=== PATIENT | male | born 1985 | race Caucasian/White ===

== ENCOUNTER 2023-03-17 16:39 | Emergency (ER) | payer BC, SELFPAY ==
--- NOTE | 2023-03-17 16:56 | ED.WOUNDLAC ---
HPI - Wound/Laceration General Chief Complaint: Wound/Laceration Stated Complaint: finger laceration (rt hand) Time Seen by Provider: 03/17/23 16:54 Source: patient Mode of arrival: ambulatory Limitations: no limitations History of Present Illness HPI narrative: Patient is a 37-year-old male that presents with laceration to right index finger. Patient was crushing oil filters at work when 1 got jammed. When he was pulling it out his finger got caught. Reports since it happened 3 hours ago. Denies any numbness or tingling to finger. Related Data Allergies Allergy/AdvReac Type Severity Reaction Status Date / Time amoxicillin Allergy Unknown Unknown Verified 03/17/23 17:04 Review of Systems Review of Systems: All systems reviewed & are unremarkable except as noted in HPI and below Constitutional: Constitutional: Denies body ache(s), Denies chills, Denies fatigue, Denies fever(s), Denies headache(s), Denies malaise and Denies weakness Eyes: Eyes: Denies blurry vision, Denies irritation and Denies loss of vision ENT: Denies otalgia, Denies headache(s), Denies nasal discharge, Denies sinus pain and Denies sore throat Cardiovascular: Cardiovascular: Denies chest pain, Denies irregular heart rhythm and Denies dyspnea Respiratory: Respiratory: Denies dyspnea Gastrointestinal: Gastrointestinal: Denies abdominal pain, Denies melena, Denies hematochezia, Denies diarrhea, Denies nausea and Denies vomiting Musculoskeletal: Musculoskeletal: Denies back pain, Denies myalgias and Denies arthralgias Integumentary/Breasts: Skin/Breast: Denies pruritus, Denies rash and Reports wounds Neurologic: Denies headache(s), Denies loss of vision and Denies weakness Psychiatric: Psychiatric: Reports no additional psychiatric complaints Endocrine: Endocrine: Denies fatigue PMFSH Family History Family History Grandparent Diabetes mellitus Father Diabetes mellitus Other Family history of malignant melanoma Social History Social History Smoking status: Heavy tobacco smoker Alcohol intake: current Comments At time of signature, agree with nursing past medical, surgical, social and family history. There is no relevant family history pertinent to the presenting complaint. Exam Const: General: cooperative, healthy appearing, comfortable, no acute distress and well nourished Nutritional Appearance: well nourished Orientation/consciousness: patient oriented x3 Limitations: no limitations HENMT: Head: normal to inspection, normocephalic and atraumatic Ears: hearing grossly normal bilaterally and external ears normal Face/Nose/Sinus: Normal external nose present, normal facial exam and face symmetric Face and sinus: normal facial exam and face symmetric Mouth: Yes lip normal Eyes: General: appearance normal, both eyes and all related structures Alignment and Position: alignment normal and position normal Periorbital: periorbital findings normal Eyelids: eyelids normal Pupils: Equal, round and reactive pupils present EOM: EOMs intact bilaterally Neck: Neck: normal visual inspection, full ROM and supple Chest: Chest palpation & inspection: normal inspection of the chest Resp: Effort & Inspection: normal respiratory effort and able to speak in complete sentences Auscultation: clear to auscultation bilaterally Cardio: Rate: regular rate Rhythm: regular rhythm Heart sounds: S1 normal heart sound present and S2 normal heart sound present GI: Inspection: normal to inspection Skin: General skin exam: normal color and no rashes or lesions noted Neuro: General: patient oriented x3 and moves all extremities Cranial nerves: Yes Equal, round and reactive pupils present Speech: normal speech Gait exam (Neuro): Normal gait present Extrem: General: normal to inspection, full ROM and no edema Left upper extremity: hand lace
[2023-03-17 17:04] VITALS: BP 144/78; PULSE 100; RESP 18; TEMP 36.8; O2SAT 98
[2023-03-17 17:05] VITALS: BP 144/78; PULSE 100; RESP 18; TEMP 36.8; O2SAT 98
[2023-03-17] MEDS: LIDOCAINE HCL 1% LOCAL INJ 2 ML AMPUL INFILTRATE (17:20)
[2023-03-17] MEDS: TETANUS,DIPHTHERIA,AC PERTUSSIS ADULT (0.5 ML) BOOSTRIX IM (17:20)
== END 2023-03-17 18:18 | disposition home or self-care (01) ==
PROVIDERS: Emergency Provider Nurse Practitioner Family; PCP Family Medicine
DX: S61.210A Laceration without foreign body of right index finger without damage to nail, initial encounter (principal); X58.XXXA Exposure to other specified factors, initial encounter; Y99.0 Civilian activity done for income or pay; Z23 Encounter for immunization; F17.200 Nicotine dependence, unspecified, uncomplicated
CPT/HCPCS: 12032; 90471; 90715; 99213; G0463

== ENCOUNTER 2023-03-26 08:55 | Emergency (ER) | payer BC, SELFPAY ==
[2023-03-26 09:20] VITALS: BP 121/83; PULSE 67; RESP 18; TEMP 36.5; O2SAT 100
--- NOTE | 2023-03-26 09:39 | ED.SKABFB ---
HPI - Skin/Abscess/Foreign Bdy General Chief complaint: Skin/Abscess/Foreign Body Stated complaint: suture removal Source: patient Mode of arrival: ambulatory Limitations: no limitations History of Present Illness HPI narrative: 37-year-old male presented for suture removal of the right index finger. Injury occurred on 03/17/2023. Six sutures were placed at that time. Patient was prescribed mupirocin ointment and reports compliance. Denies pain. He endorses mild swelling and decreased range of motion to the last knuckle of that finger (DIP). Related Data Allergies Allergy/AdvReac Type Severity Reaction Status Date / Time amoxicillin AdvReac Mild Hives Verified 03/26/23 09:13 Review of Systems Review of Systems: CONSTITUTIONAL: Denies body aches, fever, chills, or sweats. EYES: Denies visual changes, redness, or discharge. ENT: Denies rhinorrhea, congestion CARDIOVASCULAR: Denies chest pain, palpitations, or edema. RESPIRATORY: Denies cough or dyspnea. GASTROINTESTINAL: Denies abdominal pain, nausea, vomiting, or diarrhea. SKIN: 6 sutures to right index finger MUSCULOSKELETAL: Denies back pain, joint pain, or myalgia. NEUROLOGIC: Denies headache, numbness, tingling, or weakness. [facility] Family History Family History Grandparent Diabetes mellitus Father Diabetes mellitus Other Family history of malignant melanoma Social History Social History Smoking status: Heavy tobacco smoker Alcohol intake: current Comments At time of signature, I have reviewed and agree with nursing past medical, surgical, social and family history unless otherwise noted. Please see nursing chart for further information. There is no relevant family history pertinent to the presenting complaint Exam Narrative: GENERAL: Well-appearing CHEST: Clear to auscultation. HEART: Regular rate and rhythm. SKIN: Warm, dry. Right 2nd digit distal phalanx laceration with [address], mild swelling extending to the middle phalanx with limited ROM at DIP, minimal erythema or tenderness. Small amount yellow drainage. NEURO: Alert and oriented x3. Course Course Emergency Course: Patient is aware of diagnosis, understands and agrees to treatment plan. Anticipatory guidance given. Patient agrees to follow-up as directed and is aware of reasons to seek care at the emergency department. Portions of this record may have been created with voice recognition software Level of Care: Express Care Visit Vital Signs Vital signs: Vital Signs Temperature 97.7 F 03/26/23 09:20 Pulse Rate 67 03/26/23 09:20 Respiratory Rate 18 03/26/23 09:20 Blood Pressure 121/83 03/26/23 09:20 Pulse Oximetry 100 03/26/23 09:20 Oxygen Delivery Room Air 03/26/23 09:20 Temperature 97.7 F 03/26/23 09:20 Pulse Rate 67 03/26/23 09:20 Respiratory Rate 18 03/26/23 09:20 Blood Pressure 121/83 03/26/23 09:20 Pulse Oximetry 100 03/26/23 09:20 Oxygen Delivery Room Air 03/26/23 09:20 Reviewed Procedures Other Procedure Procedure 1: Other Procedure: 6 sutures removed from the right index finger distal phalanx, steri strips applied due to swelling and mild infection MDM - Skin/Abscess/Foreign Bdy MDM Narrative Medical decision making narrative: Six sutures removed from the right 2nd digit distal phalanx, discussed physical exam findings. mild swelling extending to the middle phalanx with limited ROM at DIP, minimal erythema or tenderness. Steri strips reinforced the healing lac. Rx abx. Provided with Dr Ramirez's contact info. Advised supportive measures and signs/symptoms to go to the ER. Pt is appropriate for outpt treatment and f/u. Differential Diagnosis Differential diagnosis: Likely other (abscess, cellulitis, felon, suture removal) Discharge Plan Discharge Clinical Impression: E
== END 2023-03-26 10:10 | disposition home or self-care (01) ==
PROVIDERS: Emergency Provider Nurse Practitioner Family; PCP Family Medicine
DX: S61.210D Laceration without foreign body of right index finger without damage to nail, subsequent encounter (principal); X58.XXXD Exposure to other specified factors, subsequent encounter; F17.290 Nicotine dependence, other tobacco product, uncomplicated
CPT/HCPCS: 99213; G0463

== ENCOUNTER 2024-02-09 10:57 | Emergency (ER) | payer BC, SELFPAY ==
[2024-02-09 12:07] VITALS: BP 136/90; PULSE 80; RESP 18; TEMP 37; O2SAT 100
[2024-02-09 12:27] LABS: EDCOVIDSCREEN Negative (Negative); EDINFLUASCREEN Negative (Negative); EDINFLUBSCREEN Negative (Negative); EDSTREPNEGPOS1 Negative (Negative)
[2024-02-09] MEDS: dexAMETHasone SOD PHOS INJ 10 MG/ML 1 ML VIAL BY MOUTH (12:55)
--- NOTE | 2024-02-09 12:55 | ED_ITS ---
HPI - General Adult General Chief complaint: Upper Respiratory Infection Stated complaint: flu like symptoms Source: patient Mode of arrival: ambulatory Limitations: no limitations History of Present Illness HPI narrative: Patient presents for evaluation of sick symptoms for last 3 days. Symptoms include chills, generalized body aches, and sore throat. No recent sick contacts to his knowledge. He has been taking Theraflu for his symptoms. no nausea, vomiting, diarrhea. He smokes half a pack per day. He indicates in the past he had conversations with the healthcare provider about a potential tonsillectomy, although he has not had that performed. Related Data Allergies Allergy/AdvReac Type Severity Reaction Status Date / Time amoxicillin AdvReac Mild Hives Verified 02/09/24 12:29 Review of Systems Review of Systems: CONSTITUTIONAL: reports chills. Denies fever. EYES: Denies visual changes, redness, or discharge. ENT: Reports sore throat. Denies rhinorrhea, congestion, or otalgia. CARDIOVASCULAR: Denies chest pain, palpitations, or edema. RESPIRATORY: Denies cough and SOB. GASTROINTESTINAL: Denies abdominal pain, nausea, vomiting, or diarrhea. GENITOURINARY: Denies dysuria or hematuria. SKIN: Denies rash or itching. MUSCULOSKELETAL: Reports generalized body aches NEUROLOGIC: Denies headache, numbness, dizziness, or weakness. PSYCHIATRIC: Denies anxiety or depression. PMFSH Past Medical History Medical History No pertinent past medical history Surgical History Surgical History No pertinent past surgical history Family History Family History Grandparent Diabetes mellitus Father Diabetes mellitus Other Family history of malignant melanoma Social History Social History Smoking packs per day: 0.5 Smoking cigarettes per day: 10.0 Smoking status: Current every day smoker Tobacco type: cigarettes Alcohol intake: current Gender identity (if verbalized by the patient): Male Spiritual care concerns: No Exam Narrative: GENERAL: Well-appearing, well-nourished, and in no acute distress. HEAD: Normocephalic, atraumatic. EYES: PERRLA and EOMI. ENT: Nares clear, no rhinorrhea or epistaxis. Mucous membranes moist. There is bilateral tonsillar enlargement with right being slightly larger than the left. There is white/ green exudate on bilateral tonsils. Uvula is midline. Bilateral TMs pearly stewart nonbulging NECK: Supple. No adenopathy or masses. No carotid bruits or JVD CHEST: Clear to auscultation. No respiratory distress. No wheezes rales or rhonchi HEART: Regular rate and rhythm. No murmur heard. Normal peripheral pulses. ABDOMEN: Soft, nontender, nondistended, normal active bowel sounds. EXTREMITIES: Normal range of motion. No edema. SKIN: Warm, dry, no rash. NEURO: No focal deficits. Alert and oriented x3. PSYCH: Normal mood and affect. Course Course Emergency Course: This is a 38-year-old male who presented for evaluation of sick symptoms. COVID, flu, strep were all negative. There is a very small difference in enlargement of the right tonsil compared to the left. I did offer to transfer him to the ER to rule out peritonsillar abscess. He declined. Think this is reasonable as I have low clinical suspicion for this. Uvula is midline on exam. Will treat with amoxicillin. Send throat culture. Follow-up with primary provider. [id number] ibuprofen and Tylenol for symptom management. He was given Decadron while here. In the event that he has worsening symptoms, he should go to the emergency department. Patient in agreement with plan of care. Level of Care: Express Care Visit Vital Signs Vital signs: Vital Signs Temperature 37.0 C 02/09/24 12:07 Pulse Rate 80 02/09/24 12:07 Respiratory Rate 18 02/09/24 12:07 Blood Pressure 136/90 02/09/24 12:07 Pulse Oximetry 100 02/09/24 12:07 Oxygen Delivery Room Air 02/09/24 12:07 Temperature 37.0 C 02/09/24 12:07 Pulse Rate 80 02/09/24 12:07 Respiratory Rate 18 02/09/24 12:07 Blood Pressure 136/90 02/09/24 12:07 Pulse Oximetry 100 02/09/24 12:07 Oxygen Delivery Room Air 02/09/24 12:07 Medical Decision Making Vital Signs Vital Signs: Vital Signs Temperature 37.0 C 02/09/24 12:07 Pulse Rate 80 02/09/24 12:07 Respiratory Rate 18 02/09/24 12:07 Blood Pressure 136/90 02/09/24 12:07 Pulse Oximetry 100 02/09/24 12:07 Oxygen Delivery Room Air 02/09/24 12:07 Temperature 37.0 C 02/09/24 12:07 Pulse Rate 80 02/09/24 12:07 Respiratory Rate 18 02/09/24 12:07 Blood Pressure 136/90 02/09/24 12:07 Pulse Oximetry 100 02/09/24 12:07 Oxygen Delivery Room Air 02/09/24 12:07 Lab Data Labs: Lab Results 02/09/24 Range/Units 12:23 POC Influenza A Ag Negative (Negative) POC Influenza B Ag Negative (Negative) POC SARS CoV-2 Ag Negative (Negative) POC Grp A Strep Screen Negative (Negative) Discharge Plan Discharge Clinical Impression: Pharyngitis Patient Disposition: Home, Self-Care Condition: Stable Instructions: Antibiotic Form, Pharyngitis (ED) Additional Instructions: YOU MAY TAKE IBUPROFEN 800MG THREE TIMES DAILY FOR PAIN YOU CAN ALTERNATE THIS WITH TYLENOL 650MG EVERY SIX HOURS Patient Language: Tongan Prescriptions: New amoxicillin 500 mg tablet 500 mg PO Q12H Qty: 20 0RF Cepacol Sore Throat (yovani-men) 15-2.6 mg lozenge 1 eriberto mucous membrane Q2-4H PRN (Reason: sore throat) Qty: 16 1RF Follow-up/Referrals: Ra Galvin MD [Primary Care Provider] - Stand Alone Forms: Work/School Release IP Time of Disposition: 12:51
--- OUTSIDE RECORDS SUMMARY | 2024-02-14 01:43 | XMS_ITS | Referral Summary ---
Author Organization [facility] Address [address] [place] [address] Care Team Providers Care Landscape Account Manager Name Role Phone Ra Galvin MD Primary Care Provider [phone] Source Comments [facility],non-owned Affiliates and Associated Physician Practices is amultiple site organization consisting of ambulatory clinics and hospital sitesin [place], [place], [place] and [place]. This disclosure is being madepursuant to the Care Everywhere program and may not contain all information available regarding this patient. Last updated 17.[facility] Allergies No known active allergies Medications Be aware that medications may not be up to date on this document. Always verify current medications with the patient. No known medications Social History Tobacco Use Types Packs/Day Years Used Date Smoking Tobacco: Some Days Sex and Gender Information Value Date Recorded Sex Assigned at Not on file Gender Identity Not on file Sexual Orientation Not on file Last Filed Vital Signs Vital Sign Reading Time Taken Comments Blood Pressure 142/90 05/10/2016 2:09 PM CDT Pulse 78 05/10/2016 2:09 PM CDT Temperature 36.8 ??C (98.2 ??F) 05/10/2016 2:09 PM CD T Respiratory Rate 16 05/10/2016 2:09 PM CDT Oxygen Saturation 97% 05/10/2016 2:09 PM CDT Inhaled Oxygen Concentration - - Weight 70.3 kg (155 lb) 05/10/2016 2:09 PM CDT Height 172.7 cm (5' 8 ) 05/10/2016 2:09 PM CDT Body Mass Index 23.57 05/10/2016 2:09 PM CDT Plan of Treatment Not on file Care Teams Landscape Account Manager Relationship Specialty Start Date End Date Ra Galvin MD [address] [place], [place] [id number] PCP - General Family Medicine 05/10/16
--- OUTSIDE RECORDS SUMMARY | 2024-02-14 01:43 | XMS_ITS | Patient Health Summary ---
Author Organization [facility] Address [address] [place] [address] Care Team Providers Care Square Shear Operator Name Role Phone Ra Galvin MD Primary Care Provider [phone] Note from [facility],non-owned Affiliates and Associated Physician Practices is amultiple site organization consisting of ambulatory clinics and hospital sitesin [place], [place], [place] and [place]. This disclosure is being madepursuant to the Care Everywhere program and may not contain all information available regarding this patient. Last updated 17.[facility] Allergies No known active allergies Medications Be [...] Mass Index 23.57 05/10/2016 2:09 PM CDT Procedures * STREP A SCREEN - POINT OF CARE (AMB) STL(Performed 05/10/2016) Performed for Strep throat Results * (ABNORMAL) STREP A SCREEN (05/10/2016) Strep A Rapid POCT Positive(A) Negative Strep A Internal Control Present Lot # [id number] Expiration Date [id number] Throat ENTIRE THROAT (SURFACE REGION OF NECK) / Unknown 05/10/2016 Tiarra Bullock CASHIER PAYMENTS RECEIVED-EQUIP MAINT ENG LAB - POINT OF CARE ORDERABLES Care Teams Square Shear Operator Relationship Specialty Start Date End Date Ra Galvin MD [address] [place] [address] PCP - General Family Medicine 05/10/16
--- OUTSIDE RECORDS SUMMARY | 2024-02-14 01:43 | XMS_ITS | Clinical Summary ---
Author Organization [facility] [employer] Address [address] [address] Care Team Providers Care Supervisor Briar [employer] Name Role Phone Ra Galvin MD Primary Care Provider [phone] Source Comments [facility] [employer] [facility],non-owned Affiliates and Associated Physician Practices is amultiple site organization consisting of ambulatory clinics and hospital sitesin [place], [place], [place] and [place]. This disclosure is being madepursuant to the Care Everywhere program and may not contain all information available regarding this patient. Last updated 17.[facility] [employer] [facility] Allergies No known active allergies Medications Be [...] 05/10/2016 2:09 PM CDT Plan of Treatment Health Maintenance Due Date Last Done Comments PNEUMOCOCCAL VACCINE (1 of 2 - PCV) 1992 HIV SCREENING 2001 HEPATITIS C SCREENING 07/10/2004 DTAP/TDAP/TD VACCINES (1 - Tdap) 2005 HEPATITIS B VACCINE (1 of 3 - 19+ 3-dose series) 2005 DEPRESSION SCREENING 02/25/2023 COVID-19 VACCINE (1 - 2023-2 5 season) 2023 INFLUENZA VACCINE (#1) 2023 ZOSTER VACCINE (1 of 2) 2036 HIB VACCINE Aged Out No longer eligi ble based on patient's age to complete this topic HPV VACCINE Aged Out No longer eligi ble based on patient's age to complete this topic MENINGOCOCCAL VACCINE Aged Out No ulices williams eligible based on patient's age to complete this topic Care Teams Supervisor Briar [employer] Relationship Specialty Start Date End Date Ra Galvin MD [address] [place] [address] PCP - General Family Medicine 05/10/16
--- OUTSIDE RECORDS SUMMARY | 2024-02-14 01:43 | XMS_ITS | Encounter Summary ---
Author Organization [facility] Address [address] [place] [address] Care Team Providers Care Printed Circuit Board Drafter Name Role Phone Ra Galvin MD Primary Care Provider [phone] Reason for Visit * Reason Onset Date Comments Follow-up 05/12/2016 Encounter Details Date Type Department Care Team (Late st Contact Info) Description 05/12/2016 Telephone [facility] [employer] [facility] [address] [id number] Sonia Morelos Follow-up Social History Tobacco Use Types Packs/Day Years Used Date Smoking Tobacco: Some Days Sex and Gender Information Value Date Recorded Sex Assigned at Not on file Gender Identity Not on file Sexual Orientation Not on file documented as of this encounter Plan of Treatment Not on file documented as of this encounter Visit Diagnoses Not on filedocumented in this encounter Care Teams Printed Circuit Board Drafter Relationship Specialty Start Date End Date Ra Galvin MD [address] [place] [address] PCP - General Family Medicine 05/10/16 documented as of this encounter
--- OUTSIDE RECORDS SUMMARY | 2024-02-14 01:43 | XMS_ITS | Encounter Summary ---
Author Organization [facility] Address [address] [place] [address] Care Team Providers Care Manager Plumbing Name Role Phone Ra Galvin MD Primary Care Provider [phone] Reason for Visit * Reason Comments Sore Throat Encounter Details Date Type Department Care Team (Late st Contact Info) Description 05/10/2016 2:00 PM CDT Office Visit [facility] [address] [address] Provider, [facility] [place] Strep throat (Primary Dx) Social History Tobacco Use Types Packs/Day Years Used Date Smoking Tobacco: Some Days Sex and Gender Information Value Date Recorded Sex Assigned at Not on file Gender Identity Not on file Sexual Orientation Not on file documented as of this encounter Last Filed Vital Signs Vital Sign Reading [...] Mass Index 23.57 05/10/2016 2:09 PM CDT documented in this encounter Patient Instructions * Patient Instructions* Tiarra Bullock APRN-CNP - 05/10/2016 2:23 PM CDT You will be considered contagious until you have taken the antibiotic for 24 hours. Be sure to discard your toothbrush in 3 days and use a new one. Warm salt water gargles several times daily to help with your sore throat. Sore throat lozenges and/or sprays per package directions for sore throat. May take tylenol or ibuprofen per package directions for pain or fever. Be sure to take all the antibiotic Increase water intake and rest Follow up if symptom do not improve in 3- 4 days or resolve as expected, sooner if any questions orconcerns Strep Throat, Master Scheduler GENERAL INFORMATION: Strep throat is a throat infection caused by bacteria. It is easily spread from person to person. Common symptoms include the following: ?? Sore, red, and swollen throat ?? Fever and headache ?? Upset stomach, abdominal pain, or vomiting ?? White or yellow patches or blisters in the back of your throat ?? Tender, swollen lumps on the sides of your neck or jaw ?? Throat pain when you swallow Seek immediate care for the following symptoms: ?? Throat pain that makes it too painful to drink fluids ?? Drooling because you cannot swallow your spit ?? Not able to open your mouth all the way or your voice is muffled ?? Trouble breathing because your throat is swollen ?? New symptoms like a bad headache, stiff neck, chest pain, or vomiting ?? Blood in your urine and swollen face, feet, or hands Treatment for strep throat: You will need antibiotic medicine to treat your strep throat. Take yourantibiotics until they are gone, even if you feel better. Do this unless your caregiver says it is okay to stop your antibiotics. You may return to work or school 24 hours after you start antibiotics. Manage strep throat: ?? Do not smoke. If you smoke, it is never too late to quit. Smoking may make your symptoms worse. Ask for information if you need help quitting. ?? Drink juice, milk shakes, or soup if your throat is too sore to eat solid food. Drinking liquidscan also help prevent dehydration. ?? Gargle with salt water. Mix ?? teaspoon salt in a glass of warm water and gargle. This may help reduce swelling in your throat. ?? Use lozenges, ice, soft foods, or popsicles to soothe your throat. Prevent the spread of strep throat: ?? Do not share food or drinks ?? Wash your hands often ?? Replace your toothbrush after you have taken antibiotics for 24 hours Follow up with your healthcare provider as directed: Write down your questions so you remember to ask them during your visits. CARE AGREEMENT: You have the right to help plan your care. Learn about your health condition and how it may be treated. Discuss treatment options with your caregivers to decide what care you want to receive. You always have the right to refuse treatment. The above information is an instructor psychiatric aide only. It is not intended as medical advice for individual conditions or treatments. Talk to your doctor, nurse or pharmacist before following any medical regimen to see if it is safe and effective for you. ?? 2014 [employer]. Information is for End User's use only and may not be sold, redistributed or otherwise used for commercial purposes. All illustrations and images included in CareNotes?? are the copyrighted property of [employer]. or [employer]. documented in this encounter Progress Notes * Tiarra Bullock APRN-CNP - 05/10/2016 2:16 PM CDT [facility] Chief Complaint Patient presents with ??? Sore Throat SUBJECTIVE: General The history is provided by the patient. This is a new problem. The current episode started more than 2 days ago. The problem occurs constantly. Pertinent negatives include no headaches. Treatments tried: salt water gargle, ibuprofen. The treatment provided mild relief. sore throat for 3 days Past Medical History Diagnosis Date ??? NEGATIVE PAST MEDICAL HISTORY - SEE PROBLEM LIST No current outpatient prescriptions on file prior to visit. No current facility-administered medications on file prior to visit. Past Surgical History Procedure Laterality Date ??? Negative surgical history History Social History ??? Marital status: Significant Other Spouse name: N/A ??? Number of children: N/A ??? Years of education: N/A Occupational History ??? Not on file. Social History Main Topics ??? Smoking status: Current Some Day Smoker ??? Smokeless tobacco: Not on file ??? Alcohol use: Not on file ??? Drug use: Not on file ??? Sexual activity: Not on file Other Topics Concern ??? Not on file Social History Narrative ??? No narrative on file No family history on file. Current Outpatient Prescriptions Medication Sig Dispense Refill ??? amoxicillin (AMOXIL) 875 MG tablet Take 1 Tab by mouth 2 times daily for 10 days 20 Tab 0 No current facility-administered medications for this visit. No Known Allergies REVIEW OF SYSTEMS: Review of Systems Constitutional: Negative for fever. HENT: Positive for sore throat. Negative for congestion and ear pain. Swollen glands Respiratory: Negative for cough. Gastrointestinal: Negative for nausea and vomiting. Skin: Negative for rash. Neurological: Negative for headaches. OBJECTIVE: General appearance: alert, well appearing, and in no distress. BP 142/90 (BP SITE: LEFT ARM, BP POSITION: SITTING, BP CUFF SIZE: Adult) Pulse 78 Temp 98.2 ??F (Oral) Resp 16 Ht 1.727 m (5' 8 ) Wt 70.3 kg (155 lb) SpO2 97% BMI 23.57 kg/m2 Physical Exam Constitutional: well-developed, well-nourished, and in no distress. HENT: ?? Head: Normocephalic. Right Ear: Tympanic membrane and ear canal normal. Left Ear: Tympanic membrane and ear canal normal. ?? Nose: Mucosal edema and rhinorrhea present. Right sinus exhibits no maxillary sinus tenderness and no frontal sinus tenderness. Left sinus exhibits no maxillary sinus tenderness and no frontal sinus tenderness. ?? Mouth/Throat: Uvula is midline and mucous membranes are normal. Oropharyngeal exudate, posterior oropharyngeal edema and posterior oropharyngeal erythema present. Tonsils are 2+, exudative and red, able to move air without difficulty Eyes: Conjunctivae are normal. Neck: Normal range of motion. Cardiovascular: Normal rate and regular rhythm. Pulmonary/Chest: Effort normal and breath sounds normal. No cough noted. Lymphadenopathy: Right cervical: superficial cervical adenopathy and tenderness present. No posterior cervical adenopathy present. Left cervical: superficial cervical adenopathy and tenderness present. No posterior cervical adenopathy present. Neurological: alert. Skin: Skin is warm and dry. No rashes noted. Psychiatric: Affect normal. Vitals reviewed. ASSESSMENT: Office Visit on 05/10/16 STREP A SCREEN Result Value Ref Range Strep A Rapid Positive (Abnormal) Negative Strep A INTERNAL CONTROL Present Lot Number [id number] Expiration Date Encounter Diagnosis Name Primary? Strep throat Yes PLAN: Orders Placed This Encounter ??? STREP A SCREEN ??? amoxicillin (AMOXIL) 875 MG tablet Sig: Take 1 Tab by mouth 2 times daily for 10 days Dispense: 20 Tab Refill: 0 You will be considered contagious until you have taken the antibiotic for 24 hours. Be sure to discard your toothbrush in 3 days and use a new one. Warm salt water gargles several times daily to help with your sore throat. Sore throat lozenges and/or sprays per package directions for sore throat. May take tylenol or ibuprofen per package directions for pain or fever. Be sure to take all the antibiotic Increase water intake and rest Follow up if symptom do not improve in 3- 4 days or resolve as expected, sooner if any questions orconcerns documented in this encounter Plan of Treatment Not on file documented as of this encounter Procedures Procedure Name Priority Date/Time Associated Diagnosis Comments STREP A SCREEN - POINT OF CARE (AMB) STL Routine 05/10/2016 Strep throat documented in this encounter Results * (ABNORMAL) STREP A SCREEN (05/10/2016) Strep A Rapid POCT Positive(A) Negative Strep A Internal Control Present Lot # [id number] Expiration Date Throat ENTIRE THROAT (SURFACE REGION OF NECK) / Unknown 05/10/2016 [facility] - POINT OF CARE ORDERABLES documented in this encounter Visit Diagnoses Diagnosis Strep throat- Primary Streptococcal sore throat documented in this encounter Care Teams Manager Plumbing Relationship Specialty Start Date End Date Ra Galvin MD [address] [place] [address] PCP - General Family Medicine 05/10/16 documented as of this encounter
== END 2024-02-09 12:57 | disposition home or self-care (01) ==
PROVIDERS: Emergency Provider Nurse Practitioner; PCP Family Medicine
DX: J02.9 Acute pharyngitis, unspecified (principal); Z20.822 Contact with and (suspected) exposure to COVID-19; F17.210 Nicotine dependence, cigarettes, uncomplicated
CPT/HCPCS: 87081; 87426; 87804; 87880; 99213; G0463; J1100

== ENCOUNTER 2024-05-27 01:37 | Emergency (ER) | payer BC, SELFPAY ==
--- NOTE | ~2024-05-27 | CT_ITS ---
Noncontrast CT scan of the cervical spine Technique: Multiple contiguous axial [address] images of the cervical spine were obtained and rec onstructed in 2D sagittal and coronal planes on the acquisition scanner. Dose reduction technique was used on this scan by utilizing automated exposure control, adjustment of the mA and/or kV according to patient size. The dose-length product (DLP) was 851.37 mGy-cm. Clinical History: Pain Findings: No fractures or dislocations. Unremarkable visualized bony structures. The intervertebral disc spaces are preserved. No prevertebral soft tissue swelling. Impression: No fracture or subluxation of the cervical spine. Reviewed, dictated and finalized at location . Impression: No fracture or subluxation of the cervical spine.
--- NOTE | ~2024-05-27 | CT_ITS ---
Non-contrast Head CT History: Status post fall Technique: Axial non-contrast imaging of the brain was performed. Dose reduction technique was used on this scan by utilizing automated exposure control and iterative reconstruction technique. The dose -length product (DLP) was 756.67 mGy-cm. Findings: There is no evidence of intracranial hemorrhage, mass lesion, or acute infarct. Brain par enchyma appears normal. The ventricles and subarachnoid spaces are normal in size. The calvarium ap pears normal. There is bilateral ethmoid sinus disease and mild left maxillary sinus disease. The rem aining visualized paranasal sinuses and mastoid air cells are clear. Impression: No intracranial abnormality seen. Mild sinus disease, as above. Reviewed, dictated and finalized at location . Impression: No intracranial abnormality seen. Mild sinus disease, as above.
[2024-05-27 01:33] VITALS: BP 129/61; PULSE 96; RESP 16; TEMP 36.6; O2SAT 100
--- NOTE | 2024-05-27 01:42 | ED_ITS ---
HPI - Head Injury General Chief complaint: Head Injury Stated complaint: HEAD INJURY,+LOC Time Seen by Provider: 05/27/24 01:40 History of Present Illness HPI Narrative: 38-year-old otherwise healthy male presenting to the emergency department via EMS as he is currently intoxicated and has a head injury. Patient had a witnessed fall with resultant head trauma and syncope at a local bar. Patient has been at the bar for approximately 2 hours according to pay trans who provides collateral formation to EMS. Patient does admit to drinking and does smell of alcohol on his slurring his speech. He has evidence of head trauma with a left-sided parietal scalp laceration that is approximately 4 cm in length. No palpable skull defect, no active bleeding. Patient was unconscious for approximately 10-20 minutes according to EMS. He required sternal rubbing and woke up after noxious stimuli. Patient is currently combative but redirectable with verbal deescalation. He states he is not any pain denies any headache, nausea, vomiting, vision changes or neck pain. He is moving all extremities. No other evidence of trauma to his extremities, back, chest or abdomen. He was brought back to room 14. For evaluation. Related Data Allergies Allergy/AdvReac Type Severity Reaction Status Date / Time amoxicillin AdvReac Mild Hives Verified 02/09/24 12:29 Review of Systems 2 Review of Systems: As reviewed above, limited secondary to patient's intoxication and mental status at this time [facility] Past Medical History Medical History No pertinent past medical history Surgical History Surgical History No pertinent past surgical history Family History Family History Grandparent Diabetes mellitus Father Diabetes mellitus Other Family history of malignant melanoma Social History Social History Smoking packs per day: 0.5 Smoking cigarettes per day: 10.0 Smoking status: Current every day smoker Tobacco type: cigarettes Alcohol intake: current Gender identity (if verbalized by the patient): Male Spiritual care concerns: No Exam 2 Narrative: GENERAL: Belligerent but awake and able to answer questions. Redirectable. HEAD: Normocephalic, left-sided parietal scalp laceration with no overlying hematoma or active bleeding. Approximate 3 cm and somewhat linear EYES: [PERRLA and EOMI.] ENT: Nares clear, no rhinorrhea or epistaxis. Mucous membranes moist. NECK: Supple. CHEST: [Clear to auscultation. No respiratory distress.] HEART: [Regular rate and rhythm]. No murmur heard. [Normal peripheral pulses.] ABDOMEN: [Soft, nondistended], [nontender], [No rigidity or guarding] EXTREMITIES: Normal range of motion. [No edema.] SKIN: Warm, dry, no rash. NEURO: [No focal deficits]. Alert and oriented and able to answer questions. although belligerent and intoxicated he has no focal deficits and able to cross his legs and move his upper extremities. Gait assessment deferred PSYCH: Belligerent Course Vital Signs Vital signs: Vital Signs Temperature 36.6 C 05/27/24 01:33 Pulse Rate 96 05/27/24 01:33 Respiratory Rate 16 05/27/24 01:33 Blood Pressure 129/61 05/27/24 01:33 Pulse Oximetry 100 05/27/24 01:33 Oxygen Delivery Room Air 05/27/24 01:33 Temperature 36.7 C 05/27/24 06:24 Pulse Rate 79 05/27/24 06:24 Respiratory Rate 16 05/27/24 06:24 Blood Pressure 116/73 05/27/24 06:24 Pulse Oximetry 99 05/27/24 06:24 Oxygen Delivery Room Air 05/27/24 01:33 Procedures Laceration Laceration 1: Date: 05/27/24 Time: 02:53 Site: scalp Side (If applicable): left Size (cm): 3 Description: linear Depth: simple, single layer Local Anesthetic: lidocaine 1% (Let gel) Pre-repair: wound explored and irrigated ====== Skin Level ====== Skin layer closed with: edilma (6 edilma) ====== Subcutaneous Layer ====== ====== Muscle Layer ====== ====== Tendon Layer ====== Dressing: Gauze bandage MDM - Head Injury MDM Narrative Medical decision making narrative: 38-year-old male presenting after head trauma with loss of consciousness. No reported anticoagulation or blood thinner use. Does admit to drinking heavily throughout the evening prior to the event. Was unconscious for approximately 10-20 minutes per bystanders. Woke up to noxious stimuli. He does smell of alcohol, is belligerent and initially combative with staff, IM Haldol was ordered but he stated that he will be cooperative and this was not administered at this time. He does have evidence of head trauma with left-sided laceration. This will be repaired with edilma upon completion of workup. No active bleeding. No other evidence of trauma to his chest abdomen back or extremities. Tetanus will be updated here, CT scans of his head neck were ordered. Basic laboratory studies and alcohol level were ordered. Patient declined any analgesia at this time. Let gel applied to the wound. Patient did attempt to elope and was ambulating with a very unsteady gait out of the department. Security called and he did require chemical restraint including 5 mg of intramuscular Haldol and 2 mg of intramuscular Ativan with good effect. He was much more calm and cooperative at this time, alcohol level significant elevated 358. CT scans of the head and neck were obtained. Six edilma placed into his parietal scalp with good hemostasis and wound approximation. CT scans were independently reviewed and also interpreted by Radiology. No acute intracranial findings such as hemorrhage edema, mass effect. No fractures but there is a parietal scalp hematoma with laceration that was repaired. Cervical spine shows no fractures or subluxations. No appreciable stenosis. Patient re-evaluated and doing well he is resting comfortably at this time. Will attempt to reach out the family members who can common provide him a ride home otherwise he will have to be in the ER until sober and able to ambulate unassisted. Patient's brother came in and will be his sober ride home. Patient is hemodynamically stable, cooperative and appropriate for discharge at this time. Medical Records Attestation: I reviewed the patient's medical records. Lab Data Attestation: I reviewed the patient's lab results. 05/27/24 01:53 05/27/24 01:53 Labs: Lab Results 05/27/24 Range/Units 01:53 WBC 9.8 (4.5-10.0) K/mm3 RBC 4.93 (4.6-6.20) M/mm3 Hgb 14.7 (14.0-18.0) g/dL Hct 42.6 (42.0-52.0) % MCV 86.4 (80-100) fl MCH 29.8 (26-34) pg MCHC 34.5 (32-36) g/dl RDW 14.3 (11.5-14.5) % Plt Count 237 (150-375) k/mm3 MPV 8.9 (7.4-10.4) fl Immature Gran % (Auto) 0.2 (0-0.5) % Neut % (Auto) 41.5 L (45.5-73.1) % Lymph % (Auto) 50.5 H (18.3-44.2) % [place] % (Auto) 5.8 (2.6-8.5) % Eos % (Auto) 1.5 (0-4.4) % Baso % (Auto) 0.5 (0.2-1.2) % Lymph # (Auto) 4.96 H (0.9-3.2) K/mm3 [place] # (Auto) 0.6 (0.1-0.6) K/mm3 Eos # (Auto) 0.2 (0-0.3) K/mm3 Baso # (Auto) 0.1 (0.0-0.1) K/mm3 Abs Immat Gran (auto) 0.02 (0.00-0.031) K/mm3 Absolute Neuts (auto) 4.1 (1.3-6.7) K/mm3 Absolute Nucleated RBC 0.000 (0.0-0.012) K/mm3 Nucleated RBC % 0.0 (0.0-0.2) % PT 12.3 (11.1-14.7) Seconds INR 0.9 APTT 26.8 (22.3-36.8) Seconds Sodium 143 (137-145) mmol/L Potassium 4.0 (3.4-5.0) mmol/L Chloride 108 H (98-107) mmol/L Carbon Dioxide 17 L (22-30) mmol/L Anion Gap 18 H (4-12) mmol/L BUN 8 L (9-20) mg/dL Creatinine 0.62 L (0.7-1.3) mg/dL Estim Creat Clear Calc 144 ml/min Estimated GFR > 60 (59 - ) Glucose 96 (65-110) mg/dL Calcium 9.5 (8.4-10.2) mg/dL Total Bilirubin 0.4 (0.2-1.3) mg/dL AST 34 (17-59) U/L ALT 42 (6-50) U/L Alkaline Phosphatase 60 (38-126) U/L Total Protein 8.0 (6.3-8.2) g/dL Albumin 4.9 (3.5-5.1) g/dL Ethyl Alcohol 358 H* (<10) mg/dL Imaging Data Attestation: I personally reviewed and interpreted this imaging study as follows: My impression: No acute intracranial findings, normal cervical spine Discharge Plan Discharge Clinical Impression: Concussion with loss of consciousness <= 30 min, Closed head injury, Alcohol intoxication, Laceration of scalp Patient Disposition: Home, Self-Care Condition: Stable Instructions: Antibiotic Form, Laceration (ED), Concussion (ED), Staple Care (ED) Additional Instructions: You have 6 edilma in your left scalp from your large laceration. Follow-up with your primary care provider, urgent care, or emergency department in 10-14 days for wound check and staple removal. Refrain from significant alcohol use. Patient Language: Nigerien Prescriptions: No Action amoxicillin 500 mg tablet 500 mg PO Q12H Qty: 20 0RF Cepacol Sore Throat (yovani-men) 15-2.6 mg lozenge 1 eriberto mucous membrane Q2-4H PRN (Reason: sore throat) Qty: 16 1RF Follow-up/Referrals: Ra Galvin MD [Primary Care Provider] - Time of Disposition: 06:46
--- OUTSIDE RECORDS SUMMARY | 2024-05-27 01:45 | XMS_ITS | Clinical Summary ---
Author Organization [email or web address] Address [address] [place] [address] Care Team Providers Care Plow Shaker Name Role Phone Ra Galvin MD Primary Care Provider [phone] [email or web address],non-owned Affiliates and Associated Physician Practices is amultiple site organization consisting of ambulatory clinics and hospital sitesin [place], [place], [place] and [place]. This disclosure is being madepursuant to the Care Everywhere program and may not contain all information available regarding this patient. Last updated [email or web address] Allergies No known active allergies Medications Be [...] 78 05/10/2016 2:09 PM CDT Temperature 36.8 C (98.2 F) 05/10/2016 2:09 PM CDT Respiratory Rate 16 05/10/2016 2:09 PM CDT Oxygen Saturation 97% 05/10/2016 2:09 PM CDT Inhaled Oxygen Concentration - - Weight 70.3 kg (155 lb) 05/10/2016 2:09 PM CDT Height 172.7 cm (5' 8 ) 05/10/2016 2:09 PM CDT Body Mass Index 23.57 05/10/2016 2:09 PM CDT Plan of Treatment Health Maintenance Due Date Last Done Comments HIV SCREENING 2001 HEPATITIS C SCREENING 07/10/2004 DTAP/TDAP/TD VACCINES (1 - Tdap) 2005 HEPATITIS B VACCINE (1 of 3 - 19+ 3-dose series) 2005 COVID-19 VACCINE (1 - 2023-2 5 season) 2023 INFLUENZA VACCINE (#1) 2023 DEPRESSION SCREENING 02/26/2024 ZOSTER VACCINE (1 of 2) 2036 HIB VACCINE Aged Out No longer eligi ble based on patient's age to complete this topic HPV VACCINE Aged Out No longer eligi ble based on patient's age to complete this topic MENINGOCOCCAL (Group B) VACC INE SHARED DECISION-MAKING Aged Out No longer eligibl e based on patient's age to complete this topic MENINGOCOCCAL GROUPS A/C/Y/W VACCINE Aged Out No longer eligible b ased on patient's age to complete this topic PNEUMOCOCCAL VACCINE Aged Out No long er eligible based on patient's age to complete this topic Care Teams Plow Shaker Relationship Specialty Start Date End Date Ra Galvin MD [address] [place] [address] PCP - General Family Medicine 05/10/16
[2024-05-27] MEDS: TETANUS,DIPHTHERIA,AC PERTUSSIS ADULT (0.5 ML) BOOSTRIX IM (01:53)
[2024-05-27] MEDS: LIDOCAINE, EPINEPHRINE, TETRACAINE VISCOUS SOLN 3 ML TOPICAL (01:53)
[2024-05-27 02:00] LABS: Basophils Absolute Auto 0.1 K/mm3 (0.0-0.1); Basophils Percent Auto 0.5 % (0.2-1.2); Eosinophils Absolute Auto 0.2 K/mm3 (0-0.3); Eosinophils Percent Auto 1.5 % (0-4.4); Hematocrit 42.6 % (42.0-52.0); Hemoglobin 14.7 g/dL (14.0-18.0); Immature Granulocyte Absolute 0.02 K/mm3 (0.00-0.031); Immature Granulocyte Percent A 0.2 % (0-0.5); Lymphocytes Absolute Auto 4.96 K/mm3 (0.9-3.2); Lymphocytes Percent Auto 50.5 % (18.3-44.2); Mean Corpuscular HGB Conc 34.5 g/dl (32-36); Mean Corpuscular Hemoglobin 29.8 pg (26-34); Mean Corpuscular Volume 86.4 fl (80-100); Mean Platelet Volume 8.9 fl (7.4-10.4); Monocytes Absolute Auto 0.6 K/mm3 (0.1-0.6); Monocytes Percent Auto 5.8 % (2.6-8.5); Neutrophils Absolute Auto 4.1 K/mm3 (1.3-6.7); Neutrophils Percent Auto 41.5 % (45.5-73.1); Platelet Count Result 237 k/mm3 (150-375); Red Blood Count 4.93 M/mm3 (4.6-6.20); Red Cell Distribution Width 14.3 % (11.5-14.5); White Blood Count 9.8 K/mm3 (4.5-10.0)
[2024-05-27] MEDS: HALOPERIDOL LACTATE 5 MG/ML VIAL IM (02:08)
[2024-05-27 02:10] LABS: INR 0.9; Partial Thromboplastin Time 26.8 Seconds (22.3-36.8); Prothrombin Time 12.3 Seconds (11.1-14.7)
[2024-05-27 02:22] LABS: Ethanol 358 mg/dL (<10)
[2024-05-27] MEDS: LORazepam INJ (*CRX) 2 MG/ML VIAL IM (02:38)
[2024-05-27 02:42] LABS: Alanine Aminotransferase 42 U/L (6-50); Albumin Level 4.9 g/dL (3.5-5.1); Alkaline Phosphatase 60 U/L (38-126); Anion Gap 18 mmol/L (4-12); Aspartate Amino Transferase 34 U/L (17-59); Bilirubin,Total 0.4 mg/dL (0.2-1.3); Blood Urea Nitrogen 8 mg/dL (9-20); Calcium 9.5 mg/dL (8.4-10.2); Carbon Dioxide 17 mmol/L (22-30); Chloride 108 mmol/L (98-107); Estimated CRCL calculation 144 ml/min; Estimated Glomerular Filt Rate > 60; Glucose 96 mg/dL (65-110); Sodium 143 mmol/L (137-145)
--- NOTE | 2024-05-27 02:47 | PC.NURSE ---
ON 05/27/2024 AT 0247 THE FIG CAPRIFIER FOR ROOM 15 MADE STAFF AWARE THAT THIS PT IN ROOM 14 FELL. PT WAS FOUND ON HIS KNEES AND DENIES NEW INJURY. PT IS INTOXICATED WITH AN ETOH LEVEL OF 358. PT GENERALLY UNCOOPERATIVE WITH CARE, AND ARGUMENTATIVE WITH STAFF.
[2024-05-27 04:05] VITALS: BP 96/53; PULSE 79; RESP 16; O2SAT 97
[2024-05-27 05:18] VITALS: BP 125/85; PULSE 81; RESP 16; O2SAT 97
--- NOTE | 2024-05-27 05:58 | PC.NURSE ---
Pt father Wilber contacted to come and pick up driver pt per exhibition carver Kelly orders. Pt resting comfortably in bed at this time.
[2024-05-27 06:24] VITALS: BP 116/73; PULSE 79; RESP 16; TEMP 36.7; O2SAT 99
== END 2024-05-27 06:51 | disposition home or self-care (01) ==
PROVIDERS: Emergency Provider Student in an Organized Health Care Education/Training Program; PCP Family Medicine
DX: S06.0X1A Concussion with loss of consciousness of 30 minutes or less, initial encounter (principal); S01.01XA Laceration without foreign body of scalp, initial encounter; F10.129 Alcohol abuse with intoxication, unspecified; Y90.8 Blood alcohol level of 240 mg/100 ml or more; Z23 Encounter for immunization; F17.210 Nicotine dependence, cigarettes, uncomplicated
CPT/HCPCS: 12002; 36415; 70450; 72125; 80053; 82077; 85025; 85610; 85730; 90471; 90715; 96372; 99284; J1630; J2060

== ENCOUNTER 2025-01-07 18:56 | Emergency (ER) | payer BC, SELFPAY ==
--- OUTSIDE RECORDS SUMMARY | 2025-01-07 19:01 | XMS_ITS | Clinical Summary ---
Author Organization [facility] Address [address] [place] [address] Care Team Providers Care Snailer Name Role Phone Ra Galvin MD Primary Care Provider [phone] Source Comments [facility],non-owned Affiliates and Associated Physician Practices is amultiple site organization consisting of ambulatory clinics and hospital sitesin [place], [place], [place] and [place]. This disclosure is being madepursuant to the Care Everywhere program and may not contain all information available regarding this patient. Last updated 17.[facility] Allergies No known active allergies Medications * Be aware that medications may not be up to date on this document. Alwaysverify current medications with the patient. No known medications Social History Tobacco Use Types Packs/Day Years Used Date Smoking Tobacco: Some Days Sex and Gender Information Value Date Recorded Sex Assigned at Not on file Legal Sex Male 12:22 PM CDT Gender Identity Not on file Sexual Orientation [...] 2:09 PM CDT Height 172.7 cm (5' 8) 05/10/2016 2:09 PM CDT Body Mass Index 23.57 05/10/2016 2:09 PM CDT Plan of Treatment Health Maintenance Due Date Last Done Comments HIV SCREENING 2001 HEPATITIS C SCREENING 07/10/2004 DTAP/TDAP/TD VACCINES (1 - Tdap) 2005 HEPATITIS B VACCINE (1 of 3 - 19+ 3-dose series) 2005 HPV VACCINE (1 - 3-dose SCDM series) 2013 DEPRESSION SCREENING 02/26/2024 COVID-19 VACCINE (1 - 4-2 5 season) 2024 INFLUENZA VACCINE (#1) 2024 ZOSTER VACCINE (1 of 2) 2036 HIB [...] on patient's age to complete this topic Insurance ANTH Care Teams Snailer Relationship Specialty Start Date End Date Ra Galvin MD [address] [place] [address] PCP - General Family Medicine 05/10/16
[2025-01-07 19:05] VITALS: BP 141/83; PULSE 76; RESP 18; TEMP 36.7; O2SAT 100
--- NOTE | 2025-01-07 19:34 | ED.WOUNDLAC ---
HPI - Wound/Laceration General Chief Complaint: Wound/Laceration Stated Complaint: dog bite Time Seen by Provider: 01/07/25 19:14 Source: patient and RN notes reviewed Mode of arrival: ambulatory Limitations: no limitations History of Present Illness HPI narrative: 39-year-old male patient presents today with dog bites sustained to the right wrist/forearm and 1 to the left 4th finger 3 days ago. He has an old dog that lives in a shop at work that was having a seizure. It was startled and accidentally bit him. Dog is up-to-date on vaccines. Patient is up-to-date on his tetanus vaccine. Patient initially clean the wounds with rubbing alcohol and has since been cleansing the wound daily with saline and applying antibiotic ointment. States the wound on his right wrist forearm has been healing and is scabbed over, but the wound on his left 4th finger is persistently painful and swollen and he is requesting antibiotics. States he has been taking unknown dose of amoxicillin for the last 24 hours at home, presumably left over from a previous prescription. Currently rates his pain 2/10. Related Data Allergies Allergy/AdvReac Type Severity Reaction Status Date / Time No Known Allergies Allergy Verified 01/07/25 19:08 [facility] Past Medical History Medical History No pertinent past medical history Surgical History Surgical History No pertinent past surgical history Family History Family History Grandparent Diabetes mellitus Father Diabetes mellitus Other Family history of malignant melanoma Social History Social History Social History: Single Smoking packs per day: 0.25 Smoking cigarettes per day: 5.0 Years smoked: 15 Smoking pack-years: 3.75 Smoking status: Current every day smoker Tobacco type: cigarettes Alcohol intake: current Alcohol use details: Occasionally Substance use: never Substance use type: does not use Do You Feel Safe in your Home?: Yes Lack of Transportation: No Lack of Food: Never True Current Housing: I Have Housing Concerned About Future Housing: No Difficulty Paying Gas/Electric Bills: No Difficulty Paying for Meds: No Currently Unemployed: No Education: Don't Know Difficulty w/ Childcare or Family Care: No Living arrangements: alone Occupation/Education: occupation Gender identity (if verbalized by the patient): Male Sexual Orientation (if Verbalized by the Patient): Straight or Heterosexual Spiritual care concerns: No Comments At time of signature, I have reviewed and agree with nursing past medical, surgical, social and family history unless otherwise noted. Please see nursing chart for further information. There is no relevant family history pertinent to the presenting complaint Exam Narrative: GENERAL: Well-appearing, well-nourished, and in no acute distress. HEAD: Normocephalic, atraumatic. EYES: EOMI. No redness or drainage. Conjunctivae normal. ENT: Mucous membranes pink and moist. NECK: Normal AROM. CHEST: No respiratory distress. EXTREMITIES:Right forearm: mouth shaped scabbing with very mild surrounding erythema in small localized area. No induration, fluctuance, or drainage noted. Full AROM of the wrist. Neurovascularly intact. Left 4th finger: Puncture wound to the palmar aspect of the proximal phalanx measuring approximately 3mm with surrounding moderate erythema and edema. TTP. Full AROM against resistance. Neurovascularly intact. SKIN: Warm, dry, no rash. Capillary refill normal. Normal skin turgor. NEURO: No focal deficits. Alert and oriented x3. Gait steady. PSYCH: Normal affect. No signs of depression or anxiety. Course Course Level of Care: Express Care Visit Vital Signs Vital signs: Vital Signs Temperature 98.0 F 01/07/25 19:05 Pulse Rate 76 01/07/25 19:05 Respiratory Rate 18 01/07/25 19:05 Blood Pressure 141/83 H 01/07/25 19:05 Pulse Oximetry 100 01/07/25 19:05 Oxygen Delivery Room Air 01/07/25 19:05 Temperature 98.0 F 01/07/25 19:05 Pulse Rate 76 01/07/25 19:05 Respiratory Rate 18 01/07/25 19:05 Blood Pressure 141/83 H 01/07/25 19:05 Pulse Oximetry 100 01/07/25 19:05 Oxygen Delivery Room Air 01/07/25 19:05 reviewed MDM - Wound/Laceration MDM Narrative Medical decision making narrative: 39-year-old male patient presents today with dog bites sustained to the right wrist/forearm and 1 to the left 4th finger 3 days ago. He has an old dog that lives in a shop at work that was having a seizure. It was startled and accidentally bit him. Dog is up-to-date on vaccines. Patient is up-to-date on his tetanus vaccine. Patient initially clean the wounds with rubbing alcohol and has since been cleansing the wound daily with saline and applying antibiotic ointment. States the wound on his right wrist forearm has been healing and is scabbed over, but the wound on his left 4th finger is persistently painful and swollen and he is requesting antibiotics. States he has been taking unknown dose of amoxicillin for the last 24 hours at home, presumably left over from a previous prescription. Currently rates his pain 2/10. Upon exam, Right forearm: mouth shaped scabbing with very mild surrounding erythema in small localized area. No induration, fluctuance, or drainage noted. Full AROM of the wrist. Neurovascularly intact. Left 4th finger: Puncture wound to the palmar aspect of the proximal phalanx measuring approximately 3mm with surrounding moderate erythema and edema and additional peeling skin. TTP. Full AROM against resistance. Neurovascularly intact. Patient will be placed on Augmentin for 10 days for established infection in the finger and he is urged to follow up with hand specialist early next week for further evaluation. Patient states, I'm not good at follow up. We discussed the importance of follow up to ensure that he did not need further care for tendon infection. Patient agrees with plan. VSS. Strict ED precautions given. Differential Diagnosis Differential diagnosis: Likely laceration and other (cellulitis, dog bite, tenosynovitis) Critical Care Time Critical Care Time Critical Care Time: No Discharge Plan Discharge Clinical Impression: Infected dog bite of finger Qualifiers: Encounter type: initial encounter Qualified Code(s): S61.259A - Open bite of unspecified finger without damage to nail, initial encounter Dog bite of right forearm Qualifiers: Encounter type: initial encounter Qualified Code(s): S51.851A - Open bite of right forearm, initial encounter Patient Disposition: Home Condition: Stable Instructions: Antibiotic Form, Animal Bite (ED) Additional Instructions: Please take the Augmentin as prescribed until gone. You may continue ibuprofen for pain and inflammation. Wash the wound on your finger daily with soap and water. Keep covered, especially while working. It is very important that you follow-up with a hand specialist or your PCP early next week. If symptoms worsen over the weekend to include worsening redness, drainage, development of new fever greater than 100.3, red streaking up your hand, please go to the ER immediately for further evaluation and treatment. Patient Language: Tunisian Prescriptions: New amoxicillin-pot clavulanate 875-125 mg tablet 1 tablet PO Q12H 10 Days Qty: 20 0RF Follow-up/Referrals: Rome Rmairez MD [Physician, Plastic Surgery] Ra Galvin MD [Primary Care Provider, Family Practice] Time of Disposition: 19:33
== END 2025-01-07 19:39 | disposition home or self-care (01) ==
PROVIDERS: Emergency Provider Nurse Practitioner; PCP Family Medicine
DX: S61.235A Puncture wound without foreign body of left ring finger without damage to nail, initial encounter (principal); L08.9 Local infection of the skin and subcutaneous tissue, unspecified; W54.0XXA Bitten by dog, initial encounter; S51.851A Open bite of right forearm, initial encounter; F17.210 Nicotine dependence, cigarettes, uncomplicated
CPT/HCPCS: 99213; G0463